=== PATIENT | female | born 1935 | race Caucasian/White ===

== ENCOUNTER 2018-01-02 11:41 | Emergency (ER) | payer OTHER ==
[~2018-01-02] VITALS: Ht 160 cm; Wt 42.6 kg
[~2018-01-02 11:41] MED LIST: ALEN70TA55; ALPR0.5T7; ASPI-247; DOCU250C3; ERGO1CAP6; GABA600T; METF-370; SERT-160; SIMV20TA90
[2018-01-02] MEDS ORDERED: SODIUM CHLORIDE 0.9% 1,000 ML IVB ONE (11:47)
[2018-01-02 12:08] LABS: Basophils # (auto) 0 uL; Basophils % (auto) 0.4 % (0.0-2.0); Eosinophils # (auto) 0.1 uL; Eosinophils % (auto) 2.1 % (0.0-7.0); Hematocrit 32.2 % (36.0-46.0); Hemoglobin 10.4 g/dL (12.2-16.2); Lymphocytes # (auto) 0.8 uL; Lymphocytes % (auto) 17.2 % (10.0-50.0); Mean Corpuscular Hemoglobin 28.5 pg (28.0-32.0); Mean Corpuscular Hgb Conc. 32.4 g/dL (32.0-36.0); Mean Corpuscular Volume 88.2 fL (80.0-100.0); Monocytes # (auto) 0.5 uL; Monocytes % (auto) 10.2 % (0.0-12.0); Neutrophils # (auto) 3.2 uL; Neutrophils % (auto) 70.1 % (37.0-80.0); Platelet Count (auto) 228 10^3/uL (140-450); Red Blood Cells 3.65 10^6/uL (4.0-5.20); Red Cell Distribution Width 14.1 % (11.8-14.3); White Blood Cell 4.6 10^3/uL (4.4-10.8)
[2018-01-02 12:23] LABS: Albumin 2.8 g/dL (3.4-5.0); BUN/Creatinine Ratio 27.4; Calcium 8.3 mg/dL (8.5-10.1); Magnesium 1.6 mg/dL (1.6-2.6); Potassium 4.2 mmol/L (3.5-5.1)
[2018-01-02 12:26] LABS: Bilirubin, Total 0.1 mg/dL (0.2-1.0)
[2018-01-02] MEDS ORDERED: LORazepam 2MG/ML-1ML VIAL IV ONE (13:15)
[2018-01-02 16:09] LABS: Urine Bacteria NONE SEEN /hpf (None Seen); Urine Blood 3+ /uL (Negative); Urine Budding Yeast OCCASIONAL /hpf (None Seen); Urine Specific Gravity 1.025 (1.001-1.035); Urine WBC 940 /hpf (0 - 5)
[2018-01-02] MEDS ORDERED: cefTRIAXone 1GM/10ml IVPUSH 10 ML IV ONE (17:15)
[2018-01-02 18:54] VITALS: BP 154/117
== END 2018-01-02 20:29 | disposition home or self-care (01) ==
LOC: ER 11:41 → EDUNIT# 11:41 → EDBD 11:41 → ER 20:29
DX: N39.0 Urinary tract infection, site not specified (principal); R53.1 Weakness; E78.5 Hyperlipidemia, unspecified; E11.9 Type 2 diabetes mellitus without complications; Z88.6 Allergy status to analgesic agent; Z90.710 Acquired absence of both cervix and uterus
CPT/HCPCS: 36415; 71045; 80053; 81001; 82962; 83735; 85025; 94761; 96361; 96374; 96375; 99285; J2060; J7030; 93005